=== PATIENT | male | born 1980 | race Caucasian/White ===

== ENCOUNTER 2017-08-31 08:40 | Emergency (ER) | payer OTHER | END 2017-08-31 09:12 | disposition left against medical advice (07) | LOC: EDBD 08:40 → ER 08:40 | DX: R52 Pain, unspecified (principal); Z53.21 Procedure and treatment not carried out due to patient leaving prior to being seen by health care provider; W19.XXXA Unspecified fall, initial encounter; Y93.89 Activity, other specified; Y99.8 Other external cause status; Y92.89 Other specified places as the place of occurrence of the external cause ==

== ENCOUNTER 2018-12-03 11:02 | Emergency (ER) | payer BC, OTHER ==
[~2018-12-03] VITALS: Ht 182.9 cm; Wt 79.4 kg
[2018-12-03 11:51] LABS: Basophils # (auto) 0 uL; Basophils % (auto) 0.2 % (0.0-2.0); Eosinophils # (auto) 0 uL; Eosinophils % (auto) 0.4 % (0.0-7.0); Hematocrit 48.1 % (41.0-53.0); Hemoglobin 16.4 g/dL (13.5-17.5); Lymphocytes # (auto) 0.7 uL; Lymphocytes % (auto) 7.2 % (10.0-50.0); Mean Corpuscular Hemoglobin 33.1 pg (28.0-32.0); Mean Corpuscular Volume 97.2 fL (80.0-100.0); Monocytes # (auto) 0.5 uL; Monocytes % (auto) 5.2 % (0.0-12.0); Nucleated Red Blood Cells % 0.1 %; Platelet Count (auto) 287 10^3/uL (140-450); Red Blood Cells 4.95 10^6/uL (4.5-5.90); Red Cell Distribution Width 13.2 % (11.8-14.3); White Blood Cell 9.2 10^3/uL (4.4-10.8)
[2018-12-03 12:26] LABS: Urine WBC None Seen /hpf (0 - 3)
[2018-12-03] MEDS ORDERED: TETANUS-DIPTH-ACEL PERTUSSIS 0.5ML SYRG IM ONE (12:30)
[2018-12-03 12:39] LABS: Urine Bacteria NONE SEEN /hpf (None Seen); Urine Blood Negative /uL (Negative); Urine Hyaline Cast FEW /lpf (0 - 2); Urine Mucus FEW (None Seen); Urine Specific Gravity 1.017 (1.001-1.035)
[2018-12-03 12:59] LABS: Albumin 4.1 g/dL (3.4-5.0); Potassium 3.5 mmol/L (3.5-5.1)
[2018-12-03 13:22] LABS: BUN/Creatinine Ratio 13.9; Bilirubin, Total 0.4 mg/dL (0.2-1.0); Total Protein 7.6 g/dL (6.4-8.2)
[2018-12-03 14:04] VITALS: BP 126/67
[2018-12-03 14:56] LABS: Amphetamine Screen, Urine NEGATIVE (NEGATIVE); Barbiturate Scree,Urine NEGATIVE (NEGATIVE); Benzodiazephine Screen, Urine NEGATIVE (NEGATIVE); Cannabinoid Screen, Urine POSITIVE (NEGATIVE); Cocaine Screen, Urine NEGATIVE (NEGATIVE); Opiate Scree,Urine NEGATIVE (NEGATIVE); Phencyclidine Screen, Urine NEGATIVE (NEGATIVE)
== END 2018-12-03 15:20 | disposition home or self-care (01) ==
LOC: EDBD 11:02 → ER 11:04
DX: S00.81XA Abrasion of other part of head, initial encounter (principal); E10.649 Type 1 diabetes mellitus with hypoglycemia without coma; W19.XXXA Unspecified fall, initial encounter; Y93.89 Activity, other specified; Y99.8 Other external cause status; Y92.89 Other specified places as the place of occurrence of the external cause
CPT/HCPCS: 36415; 70450; 71045; 80053; 80307; 81001; 82962; 83735; 84484; 85025; 90471; 90715; 94761; 96372

== ENCOUNTER 2023-01-17 15:54 | Emergency (ER) | payer BC, OTHER ==
[~2023-01-17] VITALS: Ht 188 cm; Wt 91.0 kg
[2023-01-17 16:00] VITALS: BP 145/88
[2023-01-17 16:37] LABS: Urine WBC None Seen /hpf (0 - 3)
[2023-01-17 16:43] LABS: Basophils # (auto) 0.1 10 ^3/uL (0-0.2); Basophils % (auto) 1.1 % (0.0-2.0); Eosinophils # (auto) 0.2 10 ^3/uL (0-0.8); Eosinophils % (auto) 2.5 % (0.0-7.0); Hematocrit 44.1 % (41.0-53.0); Hemoglobin 15.1 g/dL (13.5-17.5); Lymphocytes # (auto) 1.5 10 ^3/uL (0.4-5.4); Lymphocytes % (auto) 22.4 % (10.0-50.0); Mean Corpuscular Hemoglobin 32.8 pg (28.0-32.0); Mean Corpuscular Hgb Conc. 34.3 g/dL (32.0-36.0); Mean Corpuscular Volume 95.6 fL (80.0-100.0); Monocytes # (auto) 0.4 10 ^3/uL (0-1.3); Neutrophils # (auto) 4.4 10 ^3/uL (1.6-8.6); Nucleated Red Blood Cells % 0.1 %; Red Blood Cells 4.62 10^6/uL (4.5-5.90); Red Cell Distribution Width 12.7 % (11.8-14.3); White Blood Cell 6.5 10^3/uL (4.4-10.8)
[2023-01-17 16:44] LABS: Urine Bacteria NONE SEEN /hpf (None Seen); Urine Blood Negative /uL (Negative); Urine Specific Gravity 1.002 (1.001-1.035)
[2023-01-17 17:01] LABS: Albumin 4.1 g/dL (3.4-5.0); Calcium 9.4 mg/dL (8.5-10.1); Potassium 4.3 mmol/L (3.5-5.1)
[2023-01-17 17:05] LABS: BUN/Creatinine Ratio 7.3 (10.0-20.0); Bilirubin, Total 0.6 mg/dL (0.2-1.0); Total Protein 6.7 g/dL (6.4-8.2)
[2023-01-17] MEDS ORDERED: ASPirin 325 MG TAB PO ONE (18:00)
== END 2023-01-17 21:12 | disposition left against medical advice (07) ==
LOC: ER 15:54
DX: R07.89 Other chest pain (principal); I10 Essential (primary) hypertension; E11.9 Type 2 diabetes mellitus without complications; E78.5 Hyperlipidemia, unspecified; Z87.891 Personal history of nicotine dependence
CPT/HCPCS: 36415; 71045; 80053; 81001; 82962; 84484; 85025; 93005